=== PATIENT | male | born 1995 | race Hispanic/Latino ===

== ENCOUNTER 2016-11-08 23:26 | Emergency (ER) | payer OTHER ==
[2016-11-08 23:38] VITALS: BP 131/53; PULSE 88; RESP 18; TEMP 98.1; O2SAT 97
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
--- NOTE | 2016-11-09 14:01 | RAD ---
HISTORY: CP after swimming, cocaine abuse COMPARISON: No prior. TECHNIQUE: Chest PA and lateral FINDINGS: LUNGS: No active pulmonary disease. PLEURA: No significant pleural effusion identified. No pneumothorax apparent. CARDIOVASCULAR: Normal. OSSEOUS STRUCTURES: No significant abnormalities. VISUALIZED UPPER ABDOMEN: Normal. OTHER FINDINGS: None. IMPRESSION: No active disease.
--- NOTE | 2016-11-11 06:33 | CARD ---
APPROVED REPORT EKG Measurement Heart [id number] <Conclusion> Normal sinus rhythm Normal ECG
== END 2016-11-08 23:59 | disposition home or self-care (01) ==
LOC: H.ER 23:26
DX: R07.89 Other chest pain (principal); F14.10 Cocaine abuse, uncomplicated